=== PATIENT | female | born 2000 | race American Indian/Alaskan Native ===

== ENCOUNTER 2021-03-28 22:09 | Emergency (ER) | payer SELFPAY ==
[~2021-03-28] VITALS: Ht 175.3 cm; Wt 68.0 kg
[2021-03-28 22:15] VITALS: BP 107/77
== END 2021-03-29 02:25 | disposition home or self-care (01) ==
LOC: ER 22:14
DX: S23.41XA Sprain of ribs, initial encounter (principal); E11.9 Type 2 diabetes mellitus without complications; E78.5 Hyperlipidemia, unspecified; I10 Essential (primary) hypertension; F31.9 Bipolar disorder, unspecified; Z91.010 Allergy to peanuts; V49.59XA Passenger injured in collision with other motor vehicles in traffic accident, initial encounter; Y93.89 Activity, other specified; Y92.488 Other paved roadways as the place of occurrence of the external cause; Y99.8 Other external cause status
CPT/HCPCS: 71101